=== PATIENT | male | born 1990 | race Two or more races ===

== ENCOUNTER 2017-07-06 17:31 | Emergency (ER) | payer SELFPAY ==
[2017-07-06 18:13] LABS: ADD MAN DIFF? NO
[2017-07-06 18:17] LABS: BASO % 1 % (0-3); EOS # 0.3 x10^3/uL (0.0-0.7); EOS % 3 % (0-3); HEMATOCRIT 45.5 % (39.0-53.0); HEMOGLOBIN 15.6 g/dL (13.0-17.5); LYMPH # 2.5 x10^3/uL (1.0-4.8); LYMPH % 24 % (24-48); MEAN CORPUSCULAR HEMOGLOBIN 29 pg (25-35); MEAN CORPUSCULAR HGB CONC 34 g/dL (31-37); MEAN CORPUSCULAR VOLUME 84 fL (79-100); MONO % 10 % (0-9); NEUT # 6.8 x10^3uL (1.8-7.7); NEUT % 63 % (31-73); PLATELET COUNT 258 x10^3/uL (140-400); RED BLOOD COUNT 5.42 x10^6/uL (4.30-5.70); RED CELL DISTRIBUTION WIDTH 13.2 % (11.5-14.5); WHITE BLOOD COUNT 10.7 x10^3/uL (4.0-11.0)
[2017-07-06 18:24] LABS: ANION GAP 10 (6-14); BLOOD UREA NITROGEN 15 mg/dL (8-26); CARBON DIOXIDE 26 mmol/L (21-32); CHLORIDE 103 mmol/L (98-107); CREATININE 0.9 mg/dL (0.7-1.3); GFR 102.8; GLUCOSE 122 mg/dL (70-99); POTASSIUM 3.6 mmol/L (3.5-5.1); SODIUM 139 mmol/L (136-145)
[2017-07-06 18:30] LABS: ALBUMIN 4.3 g/dL (3.4-5.0); ALK PHOS 107 U/L (46-116); ALT (SGPT) 34 U/L (16-63); AST (SGOT) 15 U/L (15-37); DIRECT BILIRUBIN 0.1 mg/dL (0.0-0.2); LIPASE 65 U/L (73-393); TOTAL BILIRUBIN 0.5 mg/dL (0.2-1.0); TOTAL PROTEIN 8.6 g/dL (6.4-8.2)
[2017-07-06 19:27] LABS: BILIRUBIN,URINE NEGATIVE (NEG); CLARITY,URINE CLEAR; COLOR,URINE YELLOW; GLUCOSE,URINE NEGATIVE (NEG); NITRITE,URINE NEGATIVE (NEG); PROTEIN,URINE NEGATIVE (NEG-TRACE); UROBILINOGEN,URINE 0.2 mg/dL (0.2 mg/dL)
[2017-07-06 19:34] LABS: BACTERIA,URINE 0 /HPF (0-FEW); RBC,URINE 0 /HPF (0-2); SQUAMOUS EPITHELIAL CELL,UR FEW /LPF; WBC,URINE 0 /HPF (0-4)
== END 2017-07-06 20:10 | disposition home or self-care (01) ==
LOC: ER 17:31
DX: K52.9 Noninfective gastroenteritis and colitis, unspecified (principal)
CPT/HCPCS: 36415; 80048; 80076; 81001; 83690; 85025; 99284

== ENCOUNTER 2019-06-26 12:44 | Emergency (ER) | payer SELFPAY ==
[~2019-06-26] VITALS: Ht 175.3 cm; Wt 120.0 kg
[~2019-06-26 12:44] MED LIST: DICY10CA3 PO; LOPE-101 PO
[2019-06-26] MEDS ORDERED: TETRACAINE 0.5% OPHTH SOLUTION 4ML BOTTLE. OS ONE (15:00)
[2019-06-26] MEDS ORDERED: FLUORESCEIN OPHTH TEST STRIP. OS ONE (15:00)
[2019-06-26 15:35] VITALS: BP 142/63
[2019-06-26] MEDS ORDERED: GENT5DRO3 OS (15:38)
--- NOTE | 2019-06-26 15:38 | PHYS DOC ---
Past Medical History Past Medical History: Asthma, Other Additional Past Medical Histor: UMBILICAL HERNIA Past Surgical History: Other Additional Past Surgical Histo: Hernia Smoking Status: Never Smoker Alcohol Use: Rarely Drug Use: None General Adult EDM: Chief Complaint: EYE PROBLEMS HPI: HPI: Patient is a 29 year old male presented to the ER for evaluation of left eye pain. Patient said he was cutting some tiles yesterday and felt like he may got something in his left eye. He tried to wash it out at home but woke up this morning with eye irritation. He went to the Urgent care and they sent him here. Patient can see out of his left eye fine. Review of Systems: Review of Systems: Constitutional: Denies fever or chills. [] Eyes: Denies change in visual acuity. Left eye pain HENT: Denies nasal congestion or sore throat. [] Respiratory: Denies cough or shortness of breath. [] Cardiovascular: Denies chest pain or edema. [] GI: Denies abdominal pain, nausea, vomiting, bloody stools or diarrhea. [] : Denies dysuria. [] Musculoskeletal: Denies back pain or joint pain. [] Integument: Denies rash. [] Neurologic: Denies headache, focal weakness or sensory changes. [] Endocrine: Denies polyuria or polydipsia. [] Lymphatic: Denies swollen glands. [] Psychiatric: Denies depression or anxiety. [] Heart Score: Risk Factors: Risk Factors: DM, Current or recent (<one month) smoker, HTN, HLP, family history of CAD, obesity. Risk Scores: Score 0 - 3: 2.5% MACE over next 6 weeks - Discharge Home Score 4 - 6: 20.3% MACE over next 6 weeks - Admit for Clinical Observation Score 7 - 10: 72.7% MACE over next 6 weeks - Early Invasive Strategies Current Medications: Current Medications Medications (Trade) Dose Ordered Sig/Reji Start Time Stop Time Status Last Admin Dose Admin Fluorescein Sodium (Ful-Hazel) 1 strip 1X ONCE 06/26/19 15:00 06/26/19 15:01 DC 06/26/19 15:11 1 STRIP Tetracaine HCl (Tetracaine) 2 drop 1X ONCE 06/26/19 15:00 06/26/19 15:01 DC 06/26/19 15:11 2 DROP Allergies: Allergies: Allergies Coded Allergies Type Severity Reaction Last Updated Verified No Known Drug Allergies 07/06/17 No Physical Exam: PE: Constitutional: Well developed, well nourished, no acute distress, non-toxic appearance. [] HENT: Normocephalic, atraumatic, bilateral external ears normal, oropharynx moist, no oral exudates, nose normal. [] Eyes: PERRLA, EOMI, conjunctiva normal, no discharge. There is no obvious foreign body seen. eyelid was everted, no foreign body seen, there is dye uptake across the cornea consistent with abrasion. Neck: Normal range of motion, no tenderness, supple, no stridor. [] Cardiovascular:Heart rate regular rhythm, no murmur [] Lungs & Thorax: Bilateral breath sounds clear to auscultation [] Abdomen: Bowel sounds normal, soft, no tenderness, no masses, no pulsatile masses. [] Skin: Warm, dry, no erythema, no rash. [] Back: No tenderness, no CVA tenderness. [] Extremities: No tenderness, no cyanosis, no clubbing, ROM intact, no edema. [] Neurologic: Alert and oriented X 3, normal motor function, normal sensory function, no focal deficits noted. [] Psychologic: Affect normal, judgement normal, mood normal. [] Current Patient Data: Labs: Current Medications Medications (Trade) Dose Ordered Sig/Reji Route PRN Reason Start Time Stop Time Status Last Admin Dose Admin Tetracaine HCl (Tetracaine) 2 drop 1X ONCE OS 06/26/19 15:00 06/26/19 15:01 DC 06/26/19 15:11 Fluorescein Sodium (Ful-Hazel) 1 strip 1X ONCE OS 06/26/19 15:00 06/26/19 15:01 DC 06/26/19 15:11 Vital Signs: Vital Signs Date Time Temp Pulse Resp B/P (MAP) Pulse Ox O2 Delivery O2 Flow Rate FiO2 06/26/19 13:02 98.1 78 16 146/67 (93) 98 Room Air 98.1 EKG: EKG: [] Radiology/Procedures: Radiology/Procedures: [] Course & Med Decision Making: Course & Med Decision Making Pertinent Labs and Imaging studies reviewed. (See chart for details) Wood lamp exam was done, no foreign body found in cornea or under eyelid. There is dye uptake consistent with cornea abrasion. No hyphema. Patient will be put on antibiotic and he will need to follow up with eye doctor in 2 days for reevaluation. Bettie Disclaimer: Bettie Disclaimer: This electronic medical record was generated, in whole or in part, using a voice recognition dictation system. Departure Departure Impression: Primary Impression: Left cornea abrasion Disposition: HOME, SELF-CARE Condition: STABLE Referrals: NO PCP (PCP) Patient Instructions: Eye - Corneal Abrasion Additional Instructions: PLEASE CALL THIS EYE DOCTOR FOR FOLLOW UP IN [address] GOVIND GOMEZ [phone] Scripts Gentamicin Sulfate (GENTAMICIN SULFATE 0.3% OPHTH SOLN) 5 Ml Drops 2 DROP OS QID for 5 Days, #5 ML 0 Refills Prov: COLLINS CHANEY DO 06/26/19 COLLINS CHANEY DO June 26, 2019 15:38
== END 2019-06-26 15:45 | disposition home or self-care (01) ==
LOC: ER 12:44
DX: S05.02XA Injury of conjunctiva and corneal abrasion without foreign body, left eye, initial encounter (principal); J45.909 Unspecified asthma, uncomplicated; Z98.890 Other specified postprocedural states; Y29.XXXA Contact with blunt object, undetermined intent, initial encounter; Y93.89 Activity, other specified; Y92.89 Other specified places as the place of occurrence of the external cause; Y99.8 Other external cause status
CPT/HCPCS: 99283

== ENCOUNTER → 2019-09-23 | Outpatient (CLI) | payer SELFPAY ==
[~2019-09-23] MED LIST changes: +GENT5DRO3 OS
--- NOTE | 2019-09-23 14:01 | KCIC ---
INDICATION: Reason: CHEST PAIN / Spl. Instructions: Pt c/o ongoing chest pain in recent weeks. Worse with deep breaths. / History: COMPARISON: None. FINDINGS: 2 view of chest obtained. Hypoexpanded examination. Cardiac silhouette is unremarkable. No definite region of airspace consolidation. IMPRESSION: * No focal airspace consolidation or edema. Electronically signed by: Flex Botello MD (09/23/2019 1:59 PM) [id number]
== END | disposition home or self-care (01) ==
LOC: KCIC 12:58
PROVIDERS: ATTEND Nurse Practitioner Family
DX: R07.9 Chest pain, unspecified (principal)
CPT/HCPCS: 71046